=== PATIENT | female | born 1975 | race Caucasian/White ===

== ENCOUNTER 2023-02-18 12:09 | Emergency (ER) | payer OTHER ==
[~2023-02-18] VITALS: Ht 157.5 cm; Wt 58.1 kg
[2023-02-18 12:17] VITALS: BP 110/84
--- NOTE | 2023-02-18 12:20 | NUR ---
RIGHT EAR PAIN, SORE THROAT, RUNNY NOSE AND CONGESTION, DENIES FEVERS.
--- NOTE | 2023-02-18 13:25 | NUR ---
AMBULATED WITH NO DIFFICULTY TO BED 11
[2023-02-18] MEDS ORDERED: AMOX500C25 PO (13:59)
[2023-02-18] MEDS ORDERED: ACET-10509 PO (13:59)
[2023-02-18] MEDS ORDERED: IBUP-2213 PO (13:59)
--- NOTE | 2023-02-18 14:07 | NUR ---
PT C/O RT EAR PAIN , THROAT PAIN, DIZZY, RUNNY NOSE, TIRED, PHLEM, SOB X 3DYS. HOME COVID NEG. SAFETY MAINTAINED.
--- NOTE | 2023-02-18 14:08 | NUR ---
STREP SWAB SENT TO LAB.
[2023-02-18 14:57] VITALS: BP 105/72
--- NOTE | 2023-02-18 14:57 | NUR ---
The patient's care was reviewed and supervised by ED Agency Nurse 8, RN, RN.
--- NOTE | 2023-02-18 14:59 | NUR ---
Patient discharged with v/s stable. Written and verbal after care instructions given and explained. Patient alert, oriented and verbalized understanding of instructions. Ambulatory with steady gait. All questions addressed prior to discharge. ID band removed. Patient advised to follow up with PMD. Rx of ACETAMINOPHEN, AMOXICILLIN, IBUPROFEN given. Patient educated on indication of medication including possible reaction and side effects. Opportunity to ask questions provided and answered.
== END 2023-02-18 14:57 | disposition home or self-care (01) ==
LOC: MED 12:09
DX: J02.8 Acute pharyngitis due to other specified organisms (principal); B96.89 Other specified bacterial agents as the cause of diseases classified elsewhere; H92.01 Otalgia, right ear; Z79.899 Other long term (current) drug therapy
CPT/HCPCS: 71045; 87081; 87804; 99284; Q0092

== ENCOUNTER 2023-10-19 17:27 | Emergency (ER) | payer OTHER ==
[~2023-10-19] VITALS: Ht 157.5 cm; Wt 56.7 kg
[~2023-10-19 17:27] MED LIST: ACET-10509 PO; AMOX500C25 PO; IBUP-2213 PO
[2023-10-19 17:30] VITALS: BP 142/89; PULSE 104; RESP 17; TEMP 98.3; O2SAT 98
[2023-10-19] MEDS ORDERED: AMOX1TAB8 PO (18:37)
[2023-10-19] MEDS ORDERED: ALBU0.0912 INH (18:37)
[2023-10-19] MEDS ORDERED: cefTRIAXone 1,000 MG VIAL ONE (18:43)
[2023-10-19] MEDS ORDERED: LIDOCAINE MPF 1% 5 ML ONE (18:43)
[2023-10-19] MEDS: cefTRIAXone 1,000 MG in LIDOCAINE MPF 1% 2.1 ML IM ONE (18:58)
[2023-10-19 19:03] LABS: FLU A ANTIGEN negative (NEGATIVE); FLU B ANTIGEN negative (NEGATIVE)
== END 2023-10-19 19:03 | disposition home or self-care (01) ==
LOC: MED 17:27
DX: J20.9 Acute bronchitis, unspecified (principal); Z20.822 Contact with and (suspected) exposure to COVID-19; Z79.899 Other long term (current) drug therapy
CPT/HCPCS: 87426; 87804; 96372; 99283; J0696; J2001

== ENCOUNTER 2024-01-06 10:40 | Emergency (ER) | payer OTHER ==
[~2024-01-06] VITALS: Ht 157.5 cm; Wt 54.4 kg
[~2024-01-06 10:40] MED LIST changes: +ALBU0.0912 INH; +AMOX1TAB8 PO
[2024-01-06 10:54] VITALS: BP 107/79; PULSE 91; RESP 18; TEMP 97.8; O2SAT 98
[2024-01-06 12:03] LABS: FLU A ANTIGEN negative (NEGATIVE); FLU B ANTIGEN negative (NEGATIVE)
== END 2024-01-06 12:26 | disposition home or self-care (01) ==
LOC: MED 10:40
DX: J06.9 Acute upper respiratory infection, unspecified (principal); Z20.822 Contact with and (suspected) exposure to COVID-19; Z79.899 Other long term (current) drug therapy
CPT/HCPCS: 99283

== ENCOUNTER 2024-01-21 09:48 | Emergency (ER) | payer OTHER ==
[~2024-01-21] VITALS: Ht 157.5 cm; Wt 54.4 kg
[2024-01-21 09:52] VITALS: BP 117/71; PULSE 77; RESP 18; TEMP 97.3; O2SAT 100
[2024-01-21 10:36] LABS: BASOPHILS # (AUTO) 0.1 K/uL (0.00-0.22); BASOPHILS % (AUTO) 0.7 % (0.0-2.0); EOSINOPHILS # (AUTO) 0.1 K/uL (0-0.4); EOSINOPHILS % (AUTO) 1.5 % (0.0-4.0); HEMATOCRIT 41.6 % (36-48); HEMOGLOBIN 13.6 g/dL (12.0-16.0); LYMPHOCYTES # (AUTO) 1.8 K/uL (2.5-16.5); LYMPHOCYTES % (AUTO) 17.7 % (20.5-51.1); MEAN CORPUSCULAR HEMOGLOBIN 26 pg (27-31); MEAN CORPUSCULAR HGB CONC 33 g/dL (33-37); MEAN CORPUSCULAR VOLUME 78.3 fL (80-94); MONOCYTES # (AUTO) 0.6 K/uL (0.8-1.0); NEUTROPHILS # (AUTO) 7.4 K/uL (1.8-7.7); NEUTROPHILS % (AUTO) 74.1 % (42.2-75.2); PLATELET COUNT (AUTO) 393 K/uL (140-450); RED BLOOD CELL COUNT(AUTO) 5.32 MIL/uL (4.20-5.40)
[2024-01-21 10:49] LABS: ANION GAP 11.5 (8-16); CALCIUM 8.4 mg/dL (8.5-10.1); CARBON DIOXIDE 26.5 mmol/L (21-32); CREATININE 0.8 mg/dL (0.6-1.3)
[2024-01-21 12:24] VITALS: BP 134/79; PULSE 67
== END 2024-01-21 12:24 | disposition home or self-care (01) ==
LOC: MED 09:48
DX: M76.892 Other specified enthesopathies of left lower limb, excluding foot (principal); H11.31 Conjunctival hemorrhage, right eye; Z79.899 Other long term (current) drug therapy
CPT/HCPCS: 36415; 73660; 80048; 81002; 81025; 84443; 85025; 86308; 99284